=== PATIENT | male | born 1945 | race Caucasian/White ===

== ENCOUNTER 2017-03-01 21:12 | Emergency (ER) | payer OTHER, MEDICARE ==
[2017-03-01] MEDS ORDERED: TDAP ADULT 0.5 ML INJ (BOOSTRIX) IM ONE (21:41)
--- NOTE | 2017-03-01 21:55 | EDPHY ---
H & P Stated Complaint: Mechanical fall, large head lac, - LOC. Time Seen by Provider: 03/01/17 21:34 HPI/ROS: CHIEF COMPLAINT: frontal head injury HISTORY OF PRESENT ILLNESS: 71-year-old male no anticoagulant use, arrives via private vehicle, not a trauma activation, after he was carrying a box down stairs tripped, sustained a mechanical fall impacting his head. Did not tumble down stairs. No loss of consciousness. Positive laceration left frontal region. No midline C-spine pain. No peripheral paresthesia, weakness, numbness. No chest pain. No back pain. No abdominal pain. Positive alcohol use this evening. REVIEW OF SYSTEMS: A ten point review of systems was performed and is negative with the exception of the items mentioned in the HPI PAST MEDICAL/SURGICAL HISTORY: no anticoagulant use, no relevant medical/ surgical history SOCIAL HISTORY: denies alcohol use at time of incident PHYSICAL EXAM 1) GENERAL: Well-developed, well-nourished, alert and oriented. Appears to be in no acute distress. Answering questions appropriately. 2) HEAD: Normocephalic, left frontal laceration measuring 8 cm, v-shaped 3) HEENT: Pupils equal, round, reactive to light bilaterally. Negative Horners. Nasopharynx, oropharynx, clear. No deformity or angulation of nose. No septal hematoma. No rhinorrhea. No oral trauma. Ears bilaterally with normal tympanic membranes. No hemotympanum. No fluid or blood in the external auditory canal. No raccoon eyes. No Munoz sign. Teeth are normally aligned with no gross malocclusion, TMJ bilaterally nontender, facial bones nontender including the zygomatic arch, maxilla mandible. 4) NECK: No cervical collar is on. Posterior cervical spine is nontender, no stepoff, no effusion. Full range of motion which does not elicit any midline cervical spine pain, no posterior midline tenderness, no step-off. 5) LUNGS: Clear to auscultation bilaterally, no wheezes, no rhonchi, no retractions. No obvious signs of trauma. No chest wall pain. No flaring, no grunting. Moving symmetrically. No crepitus. 6) HEART: Regular rate and rhythm, 7) ABDOMEN: No guarding, no rebound, no focal tenderness, no peritoneal signs, no signs of trauma, no ecchymosis 8) MUSCULOSKELETAL: Moving all extremities, no focal areas of tenderness, no obvious trauma. 9) BACK: No midline vertebral tenderness, no fluctuance, no step-off, no obvious trauma, no visual or palpable abnormality. 10) SKIN: No abrasion DIFFERENTIAL DIAGNOSIS: Not necessarily in any particular order, my differential diagnosis includes, but is not limited to, concussion, skull fracture, intraparenchymal contusion, subarachnoid, subdural and epidural hematoma. The patient understands that this diagnosis is provisional and can never be 100% accurate. - Personal History Current Tetanus/Diphtheria Vaccine: Unsure Current Tetanus Diphtheria and Acellular Pertussis (TDAP): Unsure - Medical/Surgical History Hx Asthma: No Hx Chronic Respiratory Disease: No Hx Diabetes: No Hx Cardiac Disease: No Hx Renal Disease: No Hx Cirrhosis: No Hx Alcoholism: No Hx HIV/AIDS: No Hx Splenectomy or Spleen Trauma: No Other PMH: Ortho surgeries. - Social History Smoking Status: Former smoker Constitutional: Initial Vital Signs Temperature (C) 36.4 C 03/01/17 21:16 Heart Rate 71 03/01/17 21:16 Respiratory Rate 18 03/01/17 21:16 Blood Pressure 137/72 H 03/01/17 21:16 O2 Sat (%) 95 03/01/17 21:16 O2 Delivery Mode Room Air Allergies/Adverse Reactions: No Known Allergies Allergy (Unverified 03/01/17 21:21) Home Medications: Medication Instructions Recorded Lisinopril/Hydrochlorothiazide 03/01/17 Tamsulosin HCl 03/01/17 Medical Decision Making - Diagnostics Imaging Results: Imaging Impressions Cervical Spine CT 03/01/17 21:53 Impression: No acute posttraumatic intracranial abnormality identified. 2. CT Cervical Spine Without Contrast History: Trauma. Fall. Technique: Multislice helical CT through the cervical spine without contrast from the skull base to T1. Soft tissue and bone evaluation is performed. Sagittal and coronal reconstructions are obtained and reviewed. Dose reduction techniques were utilized. Findings: Cervical alignment is anatomic. No fracture or dislocation is identified. The relationship between skull base and C1 is normal. The C1-C2 articulation is severely arthritic but normally aligned. The odontoid process is intact. There is moderate disk space narrowing between C5 and C7. There are exuberant anterior osteophytes between C3 and C7 suggesting DISH. There are moderate posterior osteophytes present between C3 C5 and T1. There is a eccentric to the right of midline moderate disk protrusion at C5-C6 associated with marginal osteophytes. There is severe foraminal stenosis secondary to uncovertebral joint spurs on the left at C3-C4 and C4-C5, bilaterally at C5-C6 and on the left at C6-C7. The tightest central neural canal is at C5-C6 where in the midline AP diameter of the thecal sac is approximately 8 mm. Facet joints are normally aligned. The cervical thoracic junction is normally aligned. Soft tissue window evaluation does not show evidence of epidural or prevertebral hematoma. Impression: 1. No acute posttraumatic abnormality identified. 2. Multilevel degenerative disk change including multiple tightly stenotic foramina. Results called and discussed with CHANDA Sorensen at 03/01/2017 22:26 Final results are concordant with the initial interpretation. General information for patients regarding this examination can be found at [email or web address]. If you have questions or comments about this report, please contact me at [phone] (hospital) or [phone] (cell). Head CT 03/01/17 21:53 Impression: No acute posttraumatic intracranial abnormality identified. 2. CT Cervical Spine Without Contrast History: Trauma. Fall. Technique: Multislice helical CT through the cervical spine without contrast from the skull base to T1. Soft tissue and bone evaluation is performed. Sagittal and coronal reconstructions are obtained and reviewed. Dose reduction techniques were utilized. Findings: Cervical alignment is anatomic. No fracture or dislocation is identified. The relationship between skull base and C1 is normal. The C1-C2 articulation is severely arthritic but normally aligned. The odontoid process is intact. There is moderate disk space narrowing between C5 and C7. There are exuberant anterior osteophytes between C3 and C7 suggesting DISH. There are moderate posterior osteophytes present between C3 C5 and T1. There is a eccentric to the right of midline moderate disk protrusion at C5-C6 associated with marginal osteophytes. There is severe foraminal stenosis secondary to uncovertebral joint spurs on the left at C3-C4 and C4-C5, bilaterally at C5-C6 and on the left at C6-C7. The tightest central neural canal is at C5-C6 where in the midline AP diameter of the thecal sac is approximately 8 mm. Facet joints are normally aligned. The cervical thoracic junction is normally aligned. Soft tissue window evaluation does not show evidence of epidural or prevertebral hematoma. Impression: 1. No acute posttraumatic abnormality identified. 2. Multilevel degenerative disk change including multiple tightly stenotic foramina. Results called and discussed with CHANDA Sorensen at 03/01/2017 22:26 Final results are concordant with the initial interpretation. General information for patients regarding this examination can be found at [email or web address]. If you have questions or comments about this report, please contact me at (hospital) or [phone] (cell). Images reviewed by myself Procedures: Procedure: Laceration repair. I explained the indications, risks and benefits for both laceration repair and anesthetic administration. Verbal consent was obtained from the patient . The laceration on the left frontal region was anesthetized using 0.5% bupivicaine without epinephrine . After anesthetic administered the patient was observed for a period of time and had no apparent adverse effects. The wound was cleaned , prepped, draped in normal sterile fashion and explored to its base. No foreign body seen, no foreign bodies palpated. There were no deep structures involved. Galea intact The wound was repaired with 3 [id number] 6 0 Vicryl sutures achieving hemostasis, skin closed with 18 simple interrupted 6 0 Ethilon sutures . The wound repair was complex. The procedure was performed by myself. Patient has been informed that scarring will occur, although efforts have been made to minimize this. ED Course/Re-evaluation: 10:00 p.m.:Head CT ordered in this patient for trauma for the following indication: greater than 65 years old. 11:07 p.m.: Patient re-evaluated with serial examinations, for laceration sutured. He is answering questions appropriately. Discussed his negative CT imaging. He is here with family member. He will be discharged home. Recommend family member stay with him or that he spent the evening with family member. Usual and customary head injury precautions instructions provided. He feels comfortable being discharged.Care of patient under supervision of [ secondary] supervising physician Dr Godinez . - Data Points Medications Given: Discontinued Medications Diphtheria/Tetanus/Acell Pertussis (Boostrix) 0.5 ml IM .ONCE ONE Stop: 03/01/17 21:42 Last Admin: 03/01/17 21:51 Dose: 0.5 ml Departure - Departure Disposition: Home, Routine, Self-Care Clinical Impression: Forehead laceration Qualifiers: Encounter type: initial encounter Qualified Code(s): S01.81XA - Laceration without foreign body of other part of head, initial encounter Head injury Qualifiers: Encounter type: initial encounter Qualified Code(s): S09.90XA - Unspecified injury of head, initial encounter Condition: Good Instructions: Care For Your Stitches (ED), Laceration (ED), Head Injury (ED) Additional Instructions: ALTHOUGH THERE IS NO EVIDENCE OF SERIOUS HEAD INJURY AT THIS TIME, DELAYED SIGNS CAN APPEAR 24 TO 48 HOURS AFTER INJURY. WE RECOMMEND THAT YOU DESIGNATE A FRIEND OR FAMILY MEMBER TO OBSERVE YOU OVER THE NEXT FEW DAYS TO ENSURE THAT YOUR CONDITION IS PROGRESSING NORMALLY. PLEASE RETURN TO THE EMERGENCY DEPARTMENT (ED) IMMEDIATELY IF YOU HAVE INCREASED HEADACHE, PERSISTENT HEADACHE , VOMITING, WEAKNESS, CONFUSION OR VISUAL PROBLEMS. WE RECOMMEND THAT YOU DO NOT RESUME CONTACT SPORTS OR ACTIVITIES THAT TAKE COORDINATION OR BALANCE SUCH SKIING OR RIDING A BICYCLE UNTIL CLEARED TO DO SO BY YOUR DOCTOR OR BY A NEUROLOGIST. Referrals: Return, to the ER in 5 days for suture removal [Other] - 03/06/17
[2017-03-01 23:29] VITALS: BP 129/73; PULSE 76; RESP 14; TEMP 97.7; O2SAT 96
== END 2017-03-01 23:28 | disposition home or self-care (01) ==
PROC: 0HQ1XZZ Repair Face Skin, External Approach (ICD-10-PCS; principal; 2017-03-01)
DX: S01.81XA Laceration without foreign body of other part of head, initial encounter (principal); W10.8XXA Fall (on) (from) other stairs and steps, initial encounter; Y93.89 Activity, other specified; Z23 Encounter for immunization; Z87.891 Personal history of nicotine dependence

== ENCOUNTER → 2018-02-07 | Outpatient (CLI) | payer OTHER, MEDICARE | LOC: FIMAGING 09:24 | PROVIDERS: ATTEND Orthopaedic Surgery Foot and Ankle Surgery | DX: M21.612 Bunion of left foot (principal); M77.32 Calcaneal spur, left foot ==